=== PATIENT | male | born 1950 | race Caucasian/White ===

== ENCOUNTER → 2020-07-26 11:02 | Outpatient (BNVA) | payer MEDICARE, SELFPAY | PROVIDERS: PCP Internal Medicine; Visit Provider Internal Medicine Cardiovascular Disease | DX: R07.89 Other chest pain (principal); I25.10 Atherosclerotic heart disease of native coronary artery without angina pectoris; I26.99 Other pulmonary embolism without acute cor pulmonale | CPT/HCPCS: 99212 ==

== ENCOUNTER → 2020-08-09 15:34 | Outpatient (BNVA) | payer MEDICARE, SELFPAY | PROVIDERS: PCP Internal Medicine; Visit Provider Internal Medicine Cardiovascular Disease | DX: R07.89 Other chest pain (principal); I25.10 Atherosclerotic heart disease of native coronary artery without angina pectoris | CPT/HCPCS: Q3014 ==

== ENCOUNTER → 2020-11-07 13:54 | Outpatient (BNVA) | payer MEDICARE, SELFPAY | PROVIDERS: PCP Internal Medicine; Visit Provider Internal Medicine Cardiovascular Disease | DX: I25.10 Atherosclerotic heart disease of native coronary artery without angina pectoris (principal); Z79.899 Other long term (current) drug therapy | CPT/HCPCS: 99212 ==

== ENCOUNTER → 2021-11-27 12:32 | Outpatient (BNVA) | payer MEDICARE, SELFPAY | PROVIDERS: PCP Internal Medicine; Referring Provider Internal Medicine; Visit Provider Internal Medicine Cardiovascular Disease | DX: I25.10 Atherosclerotic heart disease of native coronary artery without angina pectoris (principal); E78.5 Hyperlipidemia, unspecified | CPT/HCPCS: 93005; 99212 ==

== ENCOUNTER 2022-01-16 13:20 | Outpatient (REF) | payer MEDICARE, SELFPAY ==
--- NOTE | ~2022-01-16 | MR_ITS ---
EXAMINATION: MR OF THE BRAIN WITHOUT CONTRAST. CLINICAL INFORMATION: 71-year-old with basal ganglia lesions, microvascular disease. COMPARISON: 09/14/2019 outside MRI. TECHNIQUE: Multiplanar multisequence MR imaging of the brain was done without IV contrast. FINDINGS: Brain Volume: Mild generalized diffuse parenchymal volume loss within the limitations of qualitative assessment, similar to the previous exam. Structural: No malformations. Brain and Meninges: DWI sequence demonstrates no restricted diffusion to suggest acute or subacute cerebral ischemia/infarct. Redemonstrated are scattered, patchy and punctate foci of FLAIR/T2 signal hyperintensity within the subcortical and deeper white matter of both cerebral hemispheres grossly similar appearance to the previous exam consistent with chronic ischemic microangiopathy. Small remote lacunar infarcts are seen bordering the retrolenticular portions of the internal capsules and posterior putamen bilaterally stable in appearance. Tiny remote infarcts are seen in the right cerebellar hemisphere stable in appearance. There is a mild degree of etat crible within the basal ganglia bilaterally similar in appearance. Gradient refocused imaging demonstrates no evidence for hemorrhage, hemosiderin staining or abnormal mineral deposition. No extra-axial fluid collections, space-occupying process or mass effect are identified. Ventricles and Subarachnoid Spaces: The ventricular system and subarachnoid spaces are consistent with mild generalized volume loss without hydrocephalus largely unchanged. Orbital Structures: Redemonstrated are bilateral lens extractions. Otherwise, the visualized orbital structures are grossly unremarkable within the limitations of the study. Vascular: Signal voids are seen in the visualized major intracranial vessels. There is a 3 mm signal void at the right carotid terminus which may reflect volume averaging with the communicating segment of the right ICA versus a small aneurysm. Recommend MRA to further assess. Osseous Structures, Sinuses/Mastoids, Extracranial Soft Tissues: Osseous marrow signal intensity appears grossly unremarkable. There are bony productive changes involving the anterior atlantodental joint, stable in appearance. The right maxillary sinus again appears to be contracted and thick-walled which may be sequela of chronic right maxillary sinusitis. There is fluid signal filling the right maxillary sinus on the current study, progressed from previous exam. There is minor mucosal thickening in the ethmoid complex on current exam. There is posterior disc osteophyte complex at C3-C4 resulting in mild ventral cord impingement and canal stenosis. MR/MR head/brain wo con IMPRESSION: 1. 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 2. No acute intracranial process. No evidence for hemorrhage, extra-axial fluid collection, space-occupying process, mass effect or hydrocephalus. Diffuse volume loss is unchanged. 3. Possible volume averaging versus a small aneurysm at the right carotid terminus. This can be further assessed with MRA if clinically warranted. 4. Right maxillary sinus chronic inflammatory changes as discussed above progressed from previous study.
== END 2022-01-16 13:21 | disposition home or self-care (01) ==
LOC: HO.MRI 13:20
PROVIDERS: Visit Provider Psychiatry & Neurology Neurology
DX: R25.9 Unspecified abnormal involuntary movements (principal)
CPT/HCPCS: 70551